=== PATIENT | female | born 1995 | race Caucasian/White ===

== ENCOUNTER 2017-04-15 02:08 | Emergency (ER) | payer OTHER ==
[~2017-04-15] VITALS: Ht 157.5 cm; Wt 106.6 kg
[2017-04-15 02:21] VITALS: BP 121/66
== END 2017-04-15 02:54 | disposition home or self-care (01) ==
LOC: ER 02:08
DX: K21.9 Gastro-esophageal reflux disease without esophagitis (principal); E66.9 Obesity, unspecified; Z88.8 Allergy status to other drugs, medicaments and biological substances
CPT/HCPCS: 99283; A4606; Z7610

== ENCOUNTER 2019-02-06 20:39 | Emergency (ER) | payer MEDICAID, OTHER ==
[~2019-02-06] VITALS: Ht 157.5 cm; Wt 86.2 kg
[2019-02-06] MEDS ORDERED: ACETAMINOPHEN 160 MG/5 ML PO ONE (22:00)
[2019-02-06] MEDS ORDERED: ACETAMINOPHEN ES 500 MG TABLET ONE (22:29)
[2019-02-06] MEDS ORDERED: ACETAMINOPHEN 650 MG/20.3 ML UDC ONE (22:33)
[2019-02-06 22:48] VITALS: BP 107/68
--- NOTE | 2019-02-06 23:23 | NUR ---
Patient discharged to home in stable condition. Written and verbal after care instructions given. Patient verbalizes understanding of instruction. Pt ambulatory with a steady gait
== END 2019-02-06 23:24 | disposition home or self-care (01) ==
LOC: ER 20:41
DX: B34.9 Viral infection, unspecified (principal); T44.995A Adverse effect of other drug primarily affecting the autonomic nervous system, initial encounter; R00.2 Palpitations; R51 Headache; E66.9 Obesity, unspecified; Z68.34 Body mass index [BMI] 34.0-34.9, adult; Z98.890 Other specified postprocedural states; Z88.9 Allergy status to unspecified drugs, medicaments and biological substances; Z88.8 Allergy status to other drugs, medicaments and biological substances; Y92.89 Other specified places as the place of occurrence of the external cause